=== PATIENT | male | born 1955 ===

== ENCOUNTER → 2019-08-23 | Outpatient (CLI) | payer SELFPAY ==
[~2019-08-23] MED LIST: PRAV20 PO
[2019-08-23 15:03] LABS: Stool Occult Bld Immuno 1 Negative (NEGATIVE)
== END | disposition home or self-care (01) ==
LOC: LAB EV 09:20
PROVIDERS: Internal Medicine
DX: Z12.11 Encounter for screening for malignant neoplasm of colon (principal)
CPT/HCPCS: G0328